=== PATIENT | male | born 1985 | race Caucasian/White ===

== ENCOUNTER 2020-07-20 23:21 | Emergency (ER) | payer SELFPAY ==
[~2020-07-20] VITALS: Ht 167.6 cm; Wt 139.9 kg
[2020-07-20 23:29] VITALS: BP 167/96
== END 2020-07-21 01:13 | disposition left against medical advice (07) ==
LOC: ED 23:21
DX: Z53.21 Procedure and treatment not carried out due to patient leaving prior to being seen by health care provider (principal)